=== PATIENT | female | born 1990 | race Caucasian/White ===

== ENCOUNTER 2016-07-18 11:37 | Emergency (ER) | payer OTHER ==
[~2016-07-18] VITALS: Ht 165.1 cm; Wt 79.4 kg
[~2016-07-18 11:37] MED LIST: AUGMENTIN 875 M1 TAB PO; AUGMENTIN 875875 MG PO; BENTYL20 MG PO; CYCLOBENZAPRINE10 M1 PO; IBUPROFEN800 M1 PO; LEVSIN-SL0.125 MG SL; LEVSIN/SL0.125 MG SL; MOBIC15 MG PO; NAPROSYN500 M1 PO; ORTHO TRI-CYCLE1 TA2 PO; PERCOCET 325 MG1 TA2 PO; PERCOCET 325 MG1 TA3 PO; PREDNISONE10 MG PO; PROAIR HFA0.09 MG/Ac INH; PROTONIX 40MG T40 MG PO; ROBITUSSIN W/CO10 ML PO; TRAMADOL50 MG PO; TRI-PREVIFEM 351 TAB PO; ZOFRAN ODT4 MG PO
[2016-07-18 11:47] VITALS: BP 113/72
--- NOTE | 2016-07-18 12:11 | ED UPPER/LOWER EXTREMITY COMPL ---
History of Present Illness General Chief Complaint: Lower Extremity Injury Stated Complaint: R KNEE PAIN Source: patient Exam Limitations: no limitations Vital Signs & Intake/Output Vital Signs & Intake/Output Vital Signs Date Time Temp Pulse Resp B/P Pulse O2 O2 Flow FiO2 Ox Delivery Rate 07/18 1147 97.0 89 18 113/72 99 Room Air Allergies Coded Allergies: No Known Drug Allergies (NONE 07/18/16) Uncoded Allergies: TYPE OF SUTURE (CAUSED SUTURE TO NOT DISSOLVE AND BECOME INFECTED 05/04/14) Reconcile Medications Albuterol Sulfate (Proair Hfa) 0.09 MG/Actuation YORDY 2 PUFF INH Q4HR PRN WHEEZING AMOXICILLIN/POTASSIUM CLAV (Augmentin 875-125 Tablet) 875 MG/125 MG TAB 1 TAB PO BID ileitis AMOXICILLIN/POTASSIUM CLAV (Augmentin 875-125 Tablet) 875 MG/125 MG TAB 1 TAB PO BID colitis Cyclobenzaprine HCl 10 MG TABLET 1 TAB PO TID PRN MUSCLE SPASM Dicyclomine Hydrochloride (Bentyl) 20 MG TAB 1 TAB PO Q8P PRN SPASMS Dicyclomine Hydrochloride (Bentyl) 20 MG TAB 1 TAB PO TID PRN ABDOMINAL SPASMS Hyoscyamine Sulfate (Levsin-Sl) 0.125 MG TAB.SUBL 1-2 TAB SL Q4P PRN ABDOMINAL PAIN Hyoscyamine Sulfate (Levsin-Sl) 0.125 MG TAB 1-2 TAB SL Q6P PRN abd pain Ibuprofen 800 MG TABLET 1 TAB PO TID PRN MUSCLE SPASM Naproxen (Naprosyn) 500 MG TABLET 1 TAB PO BID PRN pain and inflammation NORGESTIMATE-ETHINYL ESTRADIOL (Tri-Previfem Tablet) 1 EACH TABLET 1 TAB PO DAILY CONTROL/MENSTRUAL REG. (Reported) Ondansetron (Zofran Odt) 4 MG TAB.RAPDIS 1 TAB PO Q6P PRN NAUSEA Ondansetron (Zofran Odt) 4 MG ODT 1 TAB PO TID PRN NAUSEA Oxycodone HCl/Acetaminophen (Percocet 5-325 MG Tablet) 5 MG-325 MG TABLET 1-2 TAB PO Q6P PRN PAIN OXYCODONE HCL/ACETAMINOPHEN (Percocet 5-325 MG Tablet) 325 MG/5 MG TAB 1-2 TAB PO Q4-6 PRN PRN PAIN Pantoprazole Sodium (Protonix) 40 MG TAB 40 MG PO DAILY ACID REFLUX/gastritis TRAMADOL HCL (Tramadol) 50 MG TAB 1-2 TAB PO Q6P PRN severe pain Triage Note: C/O R KNEE PAIN WHILE PLAYING BASKETBALL 1 HOUR AGO. STATES SHE WAS RUNNING, KNEE "GAVE OUT", AND SHE FELL ON LEFT SIDE. Triage Nurses Notes Reviewed? yes : No Patient currently breastfeeds: No HPI: Patient states that she was playing basketball yesterday when her right knee gave out. Since then she has been having a throbbing pain to the medial aspect of her right knee. There is no radiation of pain. The pain worsens with walking. There is no numbness or tingling. She rates the pain as 6 out of 10. Patient states that she saw an orthopedist in the past who recommended that she no longer play sports since her cartilage was "very messed up." Past History Travel History Traveled to [place] past 21 day No Medical History Any Pertinent Medical History? 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 No Review of Systems Review of Systems Constitutional: Reports: no symptoms. Respiratory: Reports: no symptoms. Cardiovascular: Reports: no symptoms. Gastrointestinal/Abdominal: Reports: no symptoms. Musculoskeletal: Reports: see HPI, joint pain. Neurological/Psychological: Reports: no symptoms. Immunological: Reports: no symptoms. Physical Exam Physical Exam General Appearance: well developed/nourished, alert, awake, mild distress Head: atraumatic, normal appearance Eyes: Bilateral: PERRL, EOMI. Ears, Nose, Throat: hearing grossly normal Neck: normal inspection, supple Peripheral Pulses: 3+ tibialis posterior (R), 3+ dorsalis pedis (R) Knee Right: normal range of motion, normal inspection Knee Ligaments Right: STABLE Foot Right: normal inspection, normal range of motion Neurologic/Tendon: normal sensation, normal motor functions, normal tendon functions Progress Differential Diagnosis: contusion, dislocation, fracture, sprain, tendon injury Plan of Care: Orders Procedure Date/time Status Durable Medical Equipment 07/18 1337 Active Diagnostic Imaging: Viewed by Me: Radiology Read. Discussed w/RAD: Radiology Read. Radiology Impression: PATIENT: WESLEY GRIFFIN PRESENT AGE: 26 PATIENT ACCOUNT NO: [id number] : 90 LOCATION: [facility] ORDERING PHYSICIAN: CHRISTIAN CONNELLY MD SERVICE DATE: 07/18/161152 EXAM TYPE: RAD - XRY-KNEE COMPLETE RIGHT EXAMINATION: XR KNEE, RIGHT CLINICAL INFORMATION: Fall status post playing basketball. Pain. COMPARISON: Right knee 11/01/2012. TECHNIQUE: Four views of the right knee. FINDINGS: Bones and soft tissues are normal. No fracture or joint effusion. Alignment is anatomic. Joint spaces are well maintained. No abnormal soft tissue calcification. IMPRESSION: Unremarkable right knee exam. No major change from 10/31/2012. 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 <Electronically signed in Other Vendor System> SIGNED BY: TOM CEJA MD 07/18/168 Departure Departure Disposition: HOME OR SELF CARE Condition: Stable Clinical Impression Primary Impression: Right knee sprain Referrals: REGGIE LESTER,LISA BOWER MD,MIKE (PCP/Family) Additional Instructions: WEAR SPLINT FOR COMFORT FOLLOW UP WITH ORTHOPEDICS RETURN FOR ANY CONCERNS Departure Forms: Customer Survey General Discharge Information Prescriptions: Current Visit Scripts Oxycodone HCl/Acetaminophen (Percocet 5-325 MG Tablet) 1-2 TAB PO Q6P PRN PAIN #20 TAB Procedures Splinting Location: right knee Manual Alignment Performed: No Pre-Made Type: knee imobilizer Splint: KNEE Splint Applied By: splint applied by other Pre-Proc Neuro Vasc Exam: normal Post-Proc Neuro Vasc Exam: normal
--- NOTE | 2016-07-18 13:28 | RADIOLOGY REPORT ---
EXAMINATION: XR KNEE, RIGHT CLINICAL INFORMATION: Fall status post playing basketball. Pain. COMPARISON: Right knee 11/01/2012. TECHNIQUE: Four views of the right knee. FINDINGS: Bones and soft tissues are normal. No fracture or joint effusion. Alignment is anatomic. Joint spaces are well maintained. No abnormal soft tissue calcification. IMPRESSION: Unremarkable right knee exam. No major change from 10/31/2012.
[2016-07-18] MEDS ORDERED: PERCOCET 5-3251 EACH PO (13:36)
== END 2016-07-18 13:52 ==
LOC: ERH 11:37
DX: S83.91XA Sprain of unspecified site of right knee, initial encounter (principal); X58.XXXA Exposure to other specified factors, initial encounter; Y93.67 Activity, basketball; Y92.9 Unspecified place or not applicable
CPT/HCPCS: 73562-RT